=== PATIENT | female | born 1945 | race Caucasian/White ===

== ENCOUNTER → 2017-06-24 | Outpatient (CLI) | payer MEDICARE ==
[2017-06-24 13:17] LABS: CORONAVIRUS 229E NOT DETECTED (NOT DETECTE); CORONAVIRUS HKU 1 NOT DETECTED (NOT DETECTE); CORONAVIRUS NL63 NOT DETECTED (NOT DETECTE); CORONAVIRUS OC43 NOT DETECTED (NOT DETECTE); RHINOVIRUS/ENTEROVIRUS NOT DETECTED (NOT DETECTE)
[2017-06-24 13:59] LABS: HEMOGLOBIN 12.5 g/dL (12.2-16.2); LYMPH # 4.8 K/mm3 (0.7-4.5); LYMPH % 50.5 % (10-50.0)
[2017-06-24 15:00] LABS: BUN 10 mg/dL (7-18)
[2017-06-24 15:10] LABS: GFR (ESTIMATED) 62 ML/MIN (59-)
[2017-06-24 18:59] LABS: NEUTROPHILS 43 % (42-76)
== END ==
LOC: LAB 13:01
PROVIDERS: Physician Assistant
DX: R50.9 Fever, unspecified (principal); R05 Cough; R53.83 Other fatigue

== ENCOUNTER → 2017-06-27 | Outpatient (CLI) | payer MEDICARE | LOC: CARL-LAB 11:22 | DX: E87.5 Hyperkalemia (principal) ==